=== PATIENT | male | born 1935 | race Caucasian/White ===

== ENCOUNTER 2022-05-14 02:54 | Inpatient (IN) ==
[2022-05-14] MEDS ORDERED: Iopamidol - 370 500 ML MLS IVP ONE (03:13)
[2022-05-14] MEDS ORDERED: Ipratropium/Albuterol Neb 3 ML IH ONE (03:17)
[2022-05-14] MEDS ORDERED: Albuterol 2.5 MG/3 ML NEBULIZER IH ONE (03:17)
[2022-05-14 03:19] LABS: ABG Base Excess -1 mEq/L (-2 to 3); ABG HCO3 28 mEq/L (21-27); ABG Oxygen Saturation 100 % (95-98); ABG PCO2 73 mmHg (35-45); ABG PH 7.19 pH Units (7.32-7.45); ABG PO2 296 mmHg (85-104); ABG TCO2 30 mEq/L (20-26)
[2022-05-14 03:45] LABS: Hematocrit 31.4 % (37.5-50.1); Hemoglobin 9.5 g/dL (12.9-16.9); Mean Corpuscular Hemoglobin 29.4 pg (28.0-33.3); Mean Corpuscular Volume 97.2 fL (83.0-100.0); Red Blood Count 3.23 M/mcL (4.19-5.50); White Blood Count 10.4 K/mcL (4.3-11.1)
[2022-05-14 03:46] LABS: Basophils % 0.2 %; Eosinophils # 0.2 K/mcL (0.0-0.6); Eosinophils % 2.2 %; Immature Granulocytes % 0.5 % (0-4); Lymphocytes # 1.2 K/mcL (0.6-4.6); Lymphocytes % 11.8 %; Mean Corpuscular HGB Conc 30.3 g/dL (31.6-35.5); Mean Platelet Volume 10.4 fL (9.4-12.4); Monocytes # 0.8 K/mcL (0.0-1.3); Monocytes % 7.7 %; Neutrophils # 8.1 K/mcL (1.6-8.9); Platelet Count 217 K/mcL (140-400); Red Cell Distribution Width 14.7 % (11.5-14.5); Segmented Neutrophils % 77.6 %
[2022-05-14 04:08] LABS: Alanine Aminotransferase 12 Units/L (7-52); Albumin/Globulin Ratio 1.4 (1.1-2.2); Alkaline Phosphatase 70 Units/L (34-104); Aspartate Amino Transferase 15 Units/L (13-39); BUN/Creatinine Ratio 20 (6-26); Bilirubin,Total 0.4 mg/dL (0.3-1.0); Blood Urea Nitrogen 46 mg/dL (8-23); Calcium 8.7 mg/dL (8.6-10.3); Carbon Dioxide 27 mEq/L (23-29); Chloride 107 mEq/L (98-107); Globulin 2.9 g/dL (2.4-3.5); Glucose 151 mg/dL (70-105); Osmolality,Calculated 309 (280-300); Sodium 142 mEq/L (136-145); Total Protein 6.9 g/dL (6.4-8.9); Troponin I < 0.03 ng/mL (< 0.04)
[2022-05-14 04:43] LABS: Adenovirus Not Detected (Not Detect); Bordetella Pertussis Not Detected (Not Detect); Coronavirus 229E Not Detected (Not Detect); Coronavirus HKU1 Not Detected (Not Detect); Coronavirus NL63 Not Detected (Not Detect); Coronavirus OC43 Not Detected (Not Detect); Human Metapneumovirus Not Detected (Not Detect); Human Rhinovirus/Enterovirus DETECTED (Not Detect); Influenza A Subtype 2009 H1 Not Detected (Not Detect); Influenza B Not Detected (Not Detect); Parainfluenza Virus 1 Not Detected (Not Detect); Parainfluenza Virus 2 Not Detected (Not Detect); Parainfluenza Virus 3 Not Detected (Not Detect); Parainfluenza Virus 4 Not Detected (Not Detect); Respiratory Syncytial Virus Not Detected (Not Detect)
[2022-05-14 04:44] LABS: Chlamydophila pneumoniae Not Detected (Not Detect); Mycoplasma pneumoniae Not Detected (Not Detect)
[2022-05-14 04:45] LABS: SARS-CoV-2 DETECTED (Not Detect)
[2022-05-14] MEDS ORDERED: Vancomycin 1,500 MG/265 ML IV.SOLN IVPB ONE (06:03)
[2022-05-14] MEDS ORDERED: Piperacillin/Tazobactam 3.375 GM in 0.9 % Sodium Chloride Mini Bag 100 ML IVPB ONE (06:03)
[2022-05-14] MEDS ORDERED: Naloxone 0.4 MG/ML INJ IVP PRN (06:26)
[2022-05-14] MEDS ORDERED: Ondansetron ODT 4 MG TAB.RAPDIS SL PRN (06:26)
[2022-05-14] MEDS ORDERED: Melatonin 3 MG TABLET PO PRN (06:26)
[2022-05-14] MEDS ORDERED: D5% in Water 1,000 ML IVC PRN (06:32)
[2022-05-14] MEDS ORDERED: Dextrose Gel 15 GM/37.5 ML TUBE PO PRN ×2 (06:32)
[2022-05-14] MEDS ORDERED: *HR* Dextrose 50 % in Water (Syg) 50 ML SYRINGE IVP PRN (06:32)
[2022-05-14 06:44] LABS: ABG Base Excess 0 mEq/L (-2 to 3); ABG HCO3 28 mEq/L (21-27); ABG Oxygen Saturation 92 % (95-98); ABG PCO2 59 mmHg (35-45); ABG PH 7.28 pH Units (7.32-7.45); ABG PO2 73 mmHg (85-104); ABG TCO2 29 mEq/L (20-26)
[2022-05-14 08:20] LABS: C-Reactive Protein 56 mg/L (Less than 10)
[2022-05-14] MEDS: Ipratropium 1 PUFF INHALER IH SCH ×3 (08:56→22:43)
[2022-05-14] MEDS ORDERED: Insulin LISPRO 300 UNITS/3 ML VIAL SUBQ SCH (12:00)
[2022-05-14 12:52] LABS: Bilirubin,Urine Negative (Negative); Blood,Urine Trace (Negative); Clarity,Urine Clear (Clear); Color,Urine Light-Yellow (Yellow); Glucose,Urine (UA) Normal (Normal); Ketones,Urine 10 mg/dL (Negative); Leukocyte Esterase,Urine Negative (Negative); Mucus,Urine Few per lpf (None-Few); Nitrite,Urine Negative (Negative); Protein,Urine 200 mg/dL (Neg-Trace); RBC,Urine 0-3 per hpf (0-3); Specific Gravity,Urine 1.022 (1.010-1.025); Squamous Epithelial Cell,Urine Few per hpf (None-Few); Urobilinogen,Urine Normal (Normal); WBC,Urine 0-3 per hpf (0-3)
[2022-05-14] MEDS: *HR* Heparin 5,000 UNIT/ML VIAL SQ SCH ×2 (15:00→22:22)
[2022-05-14] MEDS: Insulin LISPRO 300 UNITS/3 ML VIAL SUBQ SCH (17:11)
[2022-05-15] MEDS: Ipratropium 1 PUFF INHALER IH SCH ×4 (04:08→22:56)
[2022-05-15] MEDS: *HR* Heparin 5,000 UNIT/ML VIAL SQ SCH ×3 (06:35→21:46)
[2022-05-15] MEDS: Insulin LISPRO 300 UNITS/3 ML VIAL SUBQ SCH ×3 (08:35→17:23)
[2022-05-15] MEDS ORDERED: levoFLOXacin 750 MG TABLET PO SCH (09:00)
[2022-05-15 12:19] LABS: Basophils % 0.1 %; Eosinophils % 0.2 %; Hemoglobin 8.7 g/dL (12.9-16.9); Nucleated Red Blood Cells 0.2 /100 WBC (0)
[2022-05-15 12:21] LABS: Hematocrit 27.8 % (37.5-50.1); Immature Granulocytes % 0.6 % (0-4); Lymphocytes # 0.7 K/mcL (0.6-4.6); Lymphocytes % 5.6 %; Mean Corpuscular HGB Conc 31.3 g/dL (31.6-35.5); Mean Corpuscular Hemoglobin 28.8 pg (28.0-33.3); Mean Corpuscular Volume 92.1 fL (83.0-100.0); Mean Platelet Volume 10.6 fL (9.4-12.4); Monocytes # 0.4 K/mcL (0.0-1.3); Monocytes % 3.5 %; Neutrophils # 11.3 K/mcL (1.6-8.9); Platelet Count 209 K/mcL (140-400); Red Blood Count 3.02 M/mcL (4.19-5.50); White Blood Count 12.6 K/mcL (4.3-11.1)
[2022-05-15] MEDS ORDERED: Fluticasone Propionate Nasal 50 MCG/SPRAY BOTTLE NS PRN (17:39)
[2022-05-15 19:30] LABS: Albumin 3.5 g/dL (3.5-5.7); Albumin/Globulin Ratio 1.3 (1.1-2.2); Bilirubin,Total 0.3 mg/dL (0.3-1.0); Calcium 8.4 mg/dL (8.6-10.3); Globulin 2.6 g/dL (2.4-3.5); Magnesium 1.4 mg/dL (1.6-2.6); Phosphorous 2.7 mg/dL (2.7-4.5); Potassium 4.3 mEq/L (3.5-5.1); Total Protein 6.1 g/dL (6.4-8.9)
[2022-05-15] MEDS ORDERED: rOPINIRole 0.25 MG TABLET PO SCH (21:00)
[2022-05-15] MEDS: carvediloL 6.25 MG TABLET PO SCH (21:39)
[2022-05-16] MEDS: Ipratropium 1 PUFF INHALER IH SCH ×2 (04:46→09:54)
[2022-05-16] MEDS: *HR* Heparin 5,000 UNIT/ML VIAL SQ SCH (05:39)
[2022-05-16 07:01] VITALS: BP 175/104; PULSE 75; TEMP 98.3
[2022-05-16] MEDS: Insulin LISPRO 300 UNITS/3 ML VIAL SUBQ SCH ×2 (08:21→12:01)
[2022-05-16] MEDS: carvediloL 6.25 MG TABLET PO SCH (08:34)
[2022-05-16] MEDS ORDERED: Aspirin Enteric Coated 81 MG Tablet PO SCH (09:00)
[2022-05-16 10:11] VITALS: O2SAT 93
== END 2022-05-16 13:20 | disposition home or self-care (01) | DRG 177 ==
LOC: SUATTDRO → EMEROOARM 02:54 → SUATTDRO 15:38 → 2NENU 15:38
PROVIDERS: ADMIT Pharmacist; ATTEND Internal Medicine

== ENCOUNTER 2022-07-02 20:42 | Inpatient (IN) ==
[2022-07-02 22:59] LABS: Basophils % 0.2 %; Eosinophils # 0.1 K/mcL (0.0-0.6); Eosinophils % 0.8 %; Hematocrit 25.3 % (37.5-50.1); Immature Granulocytes % 0.6 % (0-4); Lymphocytes # 2.1 K/mcL (0.6-4.6); Lymphocytes % 15.9 %; Mean Corpuscular HGB Conc 31.6 g/dL (31.6-35.5); Mean Corpuscular Hemoglobin 30.1 pg (28.0-33.3); Mean Corpuscular Volume 95.1 fL (83.0-100.0); Mean Platelet Volume 10.1 fL (9.4-12.4); Monocytes # 1.4 K/mcL (0.0-1.3); Monocytes % 10.8 %; Neutrophils # 9.6 K/mcL (1.6-8.9); Platelet Count 396 K/mcL (140-400); Red Blood Count 2.66 M/mcL (4.19-5.50); Red Cell Distribution Width 14.6 % (11.5-14.5); Segmented Neutrophils % 71.7 %; White Blood Count 13.3 K/mcL (4.3-11.1)
[2022-07-03 00:09] LABS: Albumin 3.1 g/dL (3.5-5.7); Albumin/Globulin Ratio 0.9 (1.1-2.2); Bilirubin,Total 0.5 mg/dL (0.3-1.0); Calcium 8.5 mg/dL (8.6-10.3); Globulin 3.4 g/dL (2.4-3.5); Total Protein 6.5 g/dL (6.4-8.9); Troponin I 0.03 ng/mL (< 0.04)
[2022-07-03] MEDS ORDERED: Melatonin 3 MG TABLET PO PRN (00:51)
[2022-07-03] MEDS ORDERED: Acetaminophen 325 MG TABLET PO PRN (00:51)
[2022-07-03] MEDS ORDERED: Ondansetron 4 MG/2 ML VIAL IVP PRN (00:51)
[2022-07-03] MEDS ORDERED: Naloxone 0.4 MG/ML INJ IVP PRN (00:51)
[2022-07-03] MEDS ORDERED: D5% in Water 1,000 ML IVC PRN (00:54)
[2022-07-03] MEDS ORDERED: Dextrose Gel 15 GM/37.5 ML TUBE PO PRN ×2 (00:54)
[2022-07-03] MEDS ORDERED: *HR* Dextrose 50 % in Water (Syg) 50 ML SYRINGE IVP PRN (00:54)
[2022-07-03 01:11] LABS: Influenza A PCR Negative (Negative); Influenza B PCR Negative (Negative); Resp. Syncytial Virus PCR Negative (Negative)
[2022-07-03 01:14] LABS: SARS-CoV-2 by PCR (In House) Negative (Negative)
[2022-07-03] MEDS ORDERED: Albumin Human 5% 12.5 GM/250 ML IV.SOLN IVPB ONE (02:20)
[2022-07-03] MEDS ORDERED: Albumin 25% 12.5gm/50mL 12.5 GM/50 ML IV.SOLN IVPB ONE (02:39)
[2022-07-03 04:10] LABS: Bilirubin,Urine Negative (Negative); Blood,Urine Moderate (Negative); Clarity,Urine Clear (Clear); Color,Urine Light-Yellow (Yellow); Glucose,Urine (UA) Normal (Normal); Hyaline Casts,Urine Few per lpf (None Seen); Ketones,Urine Negative (Negative); Leukocyte Esterase,Urine Negative (Negative); Mucus,Urine Few per lpf (None-Few); Nitrite,Urine Negative (Negative); PH,Urine 5.5 pH Units (5.0-8.0); Protein,Urine 50 mg/dL (Neg-Trace); RBC,Urine 0-3 per hpf (0-3); Specific Gravity,Urine 1.012 (1.010-1.025); Squamous Epithelial Cell,Urine Few per hpf (None-Few); Urobilinogen,Urine Normal (Normal); WBC,Urine 0-3 per hpf (0-3)
[2022-07-03 04:52] LABS: Basophils % 0.2 %; Eosinophils # 0.1 K/mcL (0.0-0.6); Eosinophils % 0.7 %; Hematocrit 22.7 % (37.5-50.1); Immature Granulocytes % 0.7 % (0-4); Lymphocytes % 14.9 %; Mean Corpuscular HGB Conc 30.8 g/dL (31.6-35.5); Mean Corpuscular Hemoglobin 28.9 pg (28.0-33.3); Mean Corpuscular Volume 93.8 fL (83.0-100.0); Mean Platelet Volume 9.9 fL (9.4-12.4); Monocytes # 1.6 K/mcL (0.0-1.3); Neutrophils # 9.6 K/mcL (1.6-8.9); Platelet Count 363 K/mcL (140-400); Red Blood Count 2.42 M/mcL (4.19-5.50); Red Cell Distribution Width 14.6 % (11.5-14.5); Segmented Neutrophils % 71.5 %; White Blood Count 13.5 K/mcL (4.3-11.1)
[2022-07-03 04:59] LABS: INR 2.4; Prothrombin Time 26.1 Seconds (9.4-12.1)
[2022-07-03] MEDS ORDERED: Furosemide 20 MG/2 ML VIAL IVP ONE (05:00)
[2022-07-03 05:15] LABS: Calcium 8.4 mg/dL (8.6-10.3); Magnesium 1.2 mg/dL (1.6-2.6); Phosphorous 3.7 mg/dL (2.7-4.5); Potassium 3.8 mEq/L (3.5-5.1)
[2022-07-03 05:25] LABS: Thyroid Stimulating Hormone 2.507 mcIU/mL (0.340-5.600)
[2022-07-03 05:36] LABS: Folate 18.7 ng/mL (3.0-16.0)
[2022-07-03] MEDS ORDERED: Fluticasone Propionate Nasal 50 MCG/SPRAY BOTTLE NS PRN (13:07)
[2022-07-03] MEDS: rOPINIRole 0.25 MG TABLET PO SCH (22:28)
[2022-07-03] MEDS: Famotidine 20 MG TABLET PO SCH (22:28)
[2022-07-04 05:25] LABS: Basophils % 0.2 %; Eosinophils # 0.1 K/mcL (0.0-0.6); Eosinophils % 0.5 %; Hematocrit 23.3 % (37.5-50.1); Hemoglobin 7.3 g/dL (12.9-16.9); Immature Granulocytes % 0.9 % (0-4); Lymphocytes # 1.5 K/mcL (0.6-4.6); Lymphocytes % 11.2 %; Mean Corpuscular HGB Conc 31.3 g/dL (31.6-35.5); Mean Corpuscular Hemoglobin 29.4 pg (28.0-33.3); Mean Platelet Volume 10.1 fL (9.4-12.4); Monocytes # 1.5 K/mcL (0.0-1.3); Monocytes % 11.3 %; Platelet Count 381 K/mcL (140-400); Red Blood Count 2.48 M/mcL (4.19-5.50); Red Cell Distribution Width 14.5 % (11.5-14.5); Segmented Neutrophils % 75.9 %; White Blood Count 13.2 K/mcL (4.3-11.1)
[2022-07-04 06:31] LABS: Calcium 8.6 mg/dL (8.6-10.3); Potassium 4.1 mEq/L (3.5-5.1)
[2022-07-04] MEDS: Furosemide 20 MG TABLET PO SCH (10:05)
[2022-07-04 12:34] LABS: INR 1.5; Prothrombin Time 16.2 Seconds (9.4-12.1)
[2022-07-04] MEDS: Famotidine 20 MG TABLET PO SCH (23:21)
[2022-07-04] MEDS: rOPINIRole 0.25 MG TABLET PO SCH (23:21)
[2022-07-04] MEDS: *HR* Heparin 5,000 UNIT/ML VIAL SQ SCH (23:22)
[2022-07-05] MEDS: *HR* Heparin 5,000 UNIT/ML VIAL SQ SCH ×2 (05:53→13:46)
[2022-07-05] MEDS ORDERED: Colchicine 0.6 MG TABLET PO ONE ×2 (08:34)
[2022-07-05 09:01] LABS: Basophils % 0.1 %; Eosinophils % 0.2 %; Lymphocytes % 7.7 %; Mean Corpuscular HGB Conc 32.1 g/dL (31.6-35.5); Red Cell Distribution Width 14.6 % (11.5-14.5)
[2022-07-05 09:03] LABS: Hematocrit 23.7 % (37.5-50.1); Hemoglobin 7.6 g/dL (12.9-16.9); Immature Granulocytes % 0.8 % (0-4); Immature Platelets 4.1 % (1.1-6.1); Lymphocytes # 1.2 K/mcL (0.6-4.6); Mean Corpuscular Hemoglobin 30.5 pg (28.0-33.3); Mean Corpuscular Volume 95.2 fL (83.0-100.0); Mean Platelet Volume 10.2 fL (9.4-12.4); Monocytes # 1.5 K/mcL (0.0-1.3); Monocytes % 9.7 %; Neutrophils # 12.6 K/mcL (1.6-8.9); Platelet Count 350 K/mcL (140-400); Red Blood Count 2.49 M/mcL (4.19-5.50); Segmented Neutrophils % 81.5 %; White Blood Count 15.4 K/mcL (4.3-11.1)
[2022-07-05 09:21] LABS: BUN/Creatinine Ratio 15 (6-26); Blood Urea Nitrogen 44 mg/dL (8-23); Calcium 8.6 mg/dL (8.6-10.3); Carbon Dioxide 26 mEq/L (23-29); Chloride 98 mEq/L (98-107); Glucose 135 mg/dL (70-105); Osmolality,Calculated 291 (280-300); Potassium 4.8 mEq/L (3.5-5.1); Sodium 134 mEq/L (136-145)
[2022-07-05] MEDS: Furosemide 20 MG TABLET PO SCH (10:16)
[2022-07-05 16:01] LABS: Source,Synovial Fluid left knee
[2022-07-05] MEDS: Insulin LISPRO 300 UNITS/3 ML VIAL SUBQ SCH ×2 (17:34→22:15)
[2022-07-05 17:52] LABS: Appearance,Synovial Fluid Cloudy (Clear-Hazy); Color,Synovial Fluid Straw (Straw)
[2022-07-05] MEDS: rOPINIRole 0.25 MG TABLET PO SCH (22:17)
[2022-07-05] MEDS: Famotidine 20 MG TABLET PO SCH (22:17)
[2022-07-05 22:50] LABS: C-Reactive Protein > 300 mg/L (Less than 10)
[2022-07-06 01:17] LABS: Basophils % 0.1 %; Eosinophils # 0.1 K/mcL (0.0-0.6); Eosinophils % 0.4 %; Hematocrit 23.8 % (37.5-50.1); Hemoglobin 7.5 g/dL (12.9-16.9); Immature Granulocytes % 0.8 % (0-4); Lymphocytes # 1.7 K/mcL (0.6-4.6); Lymphocytes % 11.7 %; Mean Corpuscular HGB Conc 31.5 g/dL (31.6-35.5); Mean Corpuscular Hemoglobin 28.6 pg (28.0-33.3); Mean Corpuscular Volume 90.8 fL (83.0-100.0); Mean Platelet Volume 9.9 fL (9.4-12.4); Monocytes # 1.4 K/mcL (0.0-1.3); Platelet Count 391 K/mcL (140-400); Red Blood Count 2.62 M/mcL (4.19-5.50); Red Cell Distribution Width 14.6 % (11.5-14.5); White Blood Count 14.2 K/mcL (4.3-11.1)
[2022-07-06 01:45] LABS: BUN/Creatinine Ratio 17 (6-26); Blood Urea Nitrogen 50 mg/dL (8-23); C-Reactive Protein > 300 mg/L (Less than 10); Calcium 8.9 mg/dL (8.6-10.3); Carbon Dioxide 27 mEq/L (23-29); Chloride 96 mEq/L (98-107); Creatine Kinase 46 Units/L (30-223); Glucose 148 mg/dL (70-105); Osmolality,Calculated 292 (280-300); Potassium 4.1 mEq/L (3.5-5.1); Sodium 133 mEq/L (136-145)
[2022-07-06] MEDS ORDERED: Colchicine 0.6 MG TABLET PO ONE (08:10)
[2022-07-06] MEDS: Insulin LISPRO 300 UNITS/3 ML VIAL SUBQ SCH ×4 (08:29→22:39)
[2022-07-06] MEDS: Furosemide 20 MG TABLET PO SCH (10:44)
[2022-07-06] MEDS: *HR* Glimepiride 2 MG TABLET PO SCH (10:44)
[2022-07-06] MEDS: *HR* Rivaroxaban 15 MG TABLET PO SCH (10:45)
[2022-07-06] MEDS: Cefepime HCl 1,000 MG in 0.9 % Sodium Chloride 10 ML IVP SCH (17:45)
[2022-07-06] MEDS ORDERED: Cefepime HCl 2,000 MG in 0.9 % Sodium Chloride 10 ML IVP SCH (18:00)
[2022-07-06] MEDS: Cyanocobalamin (B-12) 1,000 MCG/ML VIAL SQ SCH (22:36)
[2022-07-06] MEDS: rOPINIRole 0.25 MG TABLET PO SCH (22:36)
[2022-07-06] MEDS: Famotidine 20 MG TABLET PO SCH (22:36)
[2022-07-07] MEDS: Thiamine (B-1) 100 MG in 0.9 % Sodium Chloride 50 ML IVPB SCH ×3 (00:15→21:58)
[2022-07-07] MEDS: Cefepime HCl 1,000 MG in 0.9 % Sodium Chloride 10 ML IVP SCH ×3 (02:13→17:03)
[2022-07-07] MEDS: Cyanocobalamin (B-12) 1,000 MCG/ML VIAL SQ SCH (08:12)
[2022-07-07] MEDS: Furosemide 20 MG TABLET PO SCH (08:12)
[2022-07-07] MEDS: Insulin LISPRO 300 UNITS/3 ML VIAL SUBQ SCH ×4 (08:13→21:59)
[2022-07-07] MEDS: *HR* Rivaroxaban 15 MG TABLET PO SCH (08:13)
[2022-07-07] MEDS: *HR* Glimepiride 2 MG TABLET PO SCH (08:13)
[2022-07-07 15:38] LABS: Basophils % 0.2 %; Eosinophils # 0.1 K/mcL (0.0-0.6); Eosinophils % 0.9 %; Hematocrit 24.3 % (37.5-50.1); Hemoglobin 7.8 g/dL (12.9-16.9); Immature Granulocytes % 0.6 % (0-4); Lymphocytes # 1.7 K/mcL (0.6-4.6); Lymphocytes % 13.4 %; Mean Corpuscular HGB Conc 32.1 g/dL (31.6-35.5); Mean Corpuscular Volume 90.3 fL (83.0-100.0); Mean Platelet Volume 9.5 fL (9.4-12.4); Monocytes # 1.1 K/mcL (0.0-1.3); Monocytes % 8.2 %; Neutrophils # 9.8 K/mcL (1.6-8.9); Platelet Count 458 K/mcL (140-400); Red Blood Count 2.69 M/mcL (4.19-5.50); Red Cell Distribution Width 14.8 % (11.5-14.5); Segmented Neutrophils % 76.7 %; White Blood Count 12.8 K/mcL (4.3-11.1)
[2022-07-07 15:58] LABS: Potassium 3.7 mEq/L (3.5-5.1)
[2022-07-07] MEDS ORDERED: Vancomycin 1,250 MG/262.5 ML IV.SOLN IVPB ONE (18:00)
[2022-07-07] MEDS: rOPINIRole 0.25 MG TABLET PO SCH (21:57)
[2022-07-07] MEDS: Famotidine 20 MG TABLET PO SCH (21:57)
[2022-07-08] MEDS: Cefepime HCl 1,000 MG in 0.9 % Sodium Chloride 10 ML IVP SCH (04:37)
[2022-07-08] MEDS: Insulin LISPRO 300 UNITS/3 ML VIAL SUBQ SCH ×4 (08:34→22:49)
[2022-07-08 09:30] LABS: Basophils % 0.3 %; Eosinophils # 0.2 K/mcL (0.0-0.6); Eosinophils % 1.9 %; Hematocrit 25.8 % (37.5-50.1); Hemoglobin 8.4 g/dL (12.9-16.9); Immature Granulocytes % 0.9 % (0-4); Lymphocytes # 1.4 K/mcL (0.6-4.6); Lymphocytes % 11.9 %; Mean Corpuscular HGB Conc 32.6 g/dL (31.6-35.5); Mean Corpuscular Hemoglobin 30.4 pg (28.0-33.3); Mean Corpuscular Volume 93.5 fL (83.0-100.0); Mean Platelet Volume 9.9 fL (9.4-12.4); Monocytes % 8.5 %; Neutrophils # 8.7 K/mcL (1.6-8.9); Platelet Count 487 K/mcL (140-400); Red Blood Count 2.76 M/mcL (4.19-5.50); Red Cell Distribution Width 15.5 % (11.5-14.5); Segmented Neutrophils % 76.5 %; White Blood Count 11.4 K/mcL (4.3-11.1)
[2022-07-08 09:49] LABS: Calcium 9.3 mg/dL (8.6-10.3); Potassium 4.1 mEq/L (3.5-5.1)
[2022-07-08] MEDS: *HR* Rivaroxaban 15 MG TABLET PO SCH (09:56)
[2022-07-08] MEDS: Furosemide 20 MG TABLET PO SCH (09:56)
[2022-07-08] MEDS: *HR* Glimepiride 2 MG TABLET PO SCH (09:57)
[2022-07-08] MEDS: Cyanocobalamin (B-12) 1,000 MCG/ML VIAL SQ SCH (09:57)
[2022-07-08] MEDS: Thiamine (B-1) 100 MG in 0.9 % Sodium Chloride 50 ML IVPB SCH ×2 (09:57→22:44)
[2022-07-08 11:00] LABS: Source,Synovial Fluid Left knee
[2022-07-08 13:49] LABS: Appearance,Synovial Fluid Cloudy (Clear-Hazy); Color,Synovial Fluid Amber (Straw)
[2022-07-08] MEDS: Cefepime HCl 2,000 MG in 0.9 % Sodium Chloride 10 ML IVP SCH (17:05)
[2022-07-08] MEDS ORDERED: Vancomycin 1,250 MG/262.5 ML IV.SOLN IVPB ONE (21:00)
[2022-07-08] MEDS: rOPINIRole 0.25 MG TABLET PO SCH (22:49)
[2022-07-08] MEDS: Famotidine 20 MG TABLET PO SCH (22:49)
[2022-07-08] MEDS: Morphine Sulfate 2 MG/ML SYRINGE IVP PRN (23:35)
[2022-07-09] MEDS: Cefepime HCl 2,000 MG in 0.9 % Sodium Chloride 10 ML IVP SCH (04:57)
[2022-07-09] MEDS: Furosemide 20 MG TABLET PO SCH (08:32)
[2022-07-09] MEDS: Insulin LISPRO 300 UNITS/3 ML VIAL SUBQ SCH ×4 (08:32→20:20)
[2022-07-09] MEDS: *HR* Glimepiride 2 MG TABLET PO SCH (08:33)
[2022-07-09] MEDS: *HR* Rivaroxaban 15 MG TABLET PO SCH (08:33)
[2022-07-09] MEDS: Thiamine (B-1) 100 MG in 0.9 % Sodium Chloride 50 ML IVPB SCH (11:58)
[2022-07-09] MEDS: Thiamine (B-1) 100 MG TABLET PO SCH (15:22)
[2022-07-09] MEDS: rOPINIRole 0.25 MG TABLET PO SCH (19:26)
[2022-07-09] MEDS: Famotidine 20 MG TABLET PO SCH (19:26)
[2022-07-09 20:08] LABS: ABG Base Excess 4 mEq/L (-2 to 3); ABG HCO3 29 mEq/L (21-27); ABG Oxygen Saturation 98 % (95-98); ABG PCO2 46 mmHg (35-45); ABG PH 7.41 pH Units (7.32-7.45); ABG PO2 101 mmHg (85-104); ABG TCO2 30 mEq/L (20-26)
[2022-07-10] MEDS: Insulin LISPRO 300 UNITS/3 ML VIAL SUBQ SCH ×3 (07:30→17:11)
[2022-07-10] MEDS ORDERED: Cefepime HCl 2,000 MG in 0.9 % Sodium Chloride 10 ML IVP SCH (09:00)
[2022-07-10] MEDS: Furosemide 20 MG TABLET PO SCH (09:42)
[2022-07-10] MEDS: Thiamine (B-1) 100 MG TABLET PO SCH (09:42)
[2022-07-10] MEDS: *HR* Rivaroxaban 15 MG TABLET PO SCH (09:43)
[2022-07-10 10:26] LABS: Bilirubin,Urine Negative (Negative); Blood,Urine Moderate (Negative); Clarity,Urine Clear (Clear); Color,Urine Light-Yellow (Yellow); Glucose,Urine (UA) Normal (Normal); Ketones,Urine 10 mg/dL (Negative); Leukocyte Esterase,Urine Negative (Negative); Mucus,Urine Few per lpf (None-Few); Nitrite,Urine Negative (Negative); Protein,Urine 70 mg/dL (Neg-Trace); RBC,Urine 0-3 per hpf (0-3); Specific Gravity,Urine 1.017 (1.010-1.025); Squamous Epithelial Cell,Urine Few per hpf (None-Few); Urobilinogen,Urine Normal (Normal); WBC,Urine 0-3 per hpf (0-3)
[2022-07-10 11:01] LABS: Calcium 9.4 mg/dL (8.6-10.3); Potassium 3.8 mEq/L (3.5-5.1)
[2022-07-10] MEDS: D5% in 0.9% NACL 1,000 ML IVC SCH (11:14)
[2022-07-10] MEDS: Thiamine (B-1) 100 MG in 0.9 % Sodium Chloride 50 ML IVPB SCH ×2 (13:19→21:10)
[2022-07-10] MEDS: Morphine Sulfate 2 MG/ML SYRINGE IVP PRN (19:52)
[2022-07-10] MEDS: Famotidine 20 MG TABLET PO SCH (21:10)
[2022-07-10] MEDS: rOPINIRole 0.25 MG TABLET PO SCH (21:10)
[2022-07-11] MEDS: Morphine Sulfate 2 MG/ML SYRINGE IVP PRN (00:09)
[2022-07-11 01:15] LABS: Calcium 9.3 mg/dL (8.6-10.3); Potassium 3.5 mEq/L (3.5-5.1)
[2022-07-11] MEDS: Insulin LISPRO 300 UNITS/3 ML VIAL SUBQ SCH ×5 (01:30→23:28)
[2022-07-11] MEDS: D5% in 0.9% NACL 1,000 ML IVC SCH ×2 (02:11→16:01)
[2022-07-11] MEDS ORDERED: *HR* HYDROmorphone (PF) 1 MG/ML SYRINGE IVP PRN (08:31)
[2022-07-11] MEDS ORDERED: Vancomycin 500 MG in 0.9 % Sodium Chloride Mini Bag 100 ML IVPB ONE (09:00)
[2022-07-11] MEDS: *HR* Rivaroxaban 15 MG TABLET PO SCH (09:56)
[2022-07-11] MEDS: Furosemide 20 MG TABLET PO SCH (09:56)
[2022-07-11 10:59] LABS: Adenovirus Not Detected (Not Detect); Bordetella Pertussis Not Detected (Not Detect); Chlamydophila pneumoniae Not Detected (Not Detect); Coronavirus 229E Not Detected (Not Detect); Coronavirus HKU1 Not Detected (Not Detect); Coronavirus NL63 Not Detected (Not Detect); Coronavirus OC43 Not Detected (Not Detect); Human Metapneumovirus Not Detected (Not Detect); Human Rhinovirus/Enterovirus Not Detected (Not Detect); Influenza A Subtype 2009 H1 Not Detected (Not Detect); Influenza B Not Detected (Not Detect); Mycoplasma pneumoniae Not Detected (Not Detect); Parainfluenza Virus 1 Not Detected (Not Detect); Parainfluenza Virus 2 Not Detected (Not Detect); Parainfluenza Virus 3 Not Detected (Not Detect); Parainfluenza Virus 4 Not Detected (Not Detect); Respiratory Syncytial Virus Not Detected (Not Detect); SARS-CoV-2 Not Detected (Not Detect)
[2022-07-11] MEDS: Thiamine (B-1) 100 MG in 0.9 % Sodium Chloride 50 ML IVPB SCH ×2 (11:26→22:07)
[2022-07-11] MEDS ORDERED: Dulaglutide [Trulicity] 0.75 MG/0.5 ML Pen.Injctr SUBQ SCH (13:47)
[2022-07-11] MEDS ORDERED: *HR* HYDROmorphone (PF) 1 MG/ML SYRINGE IVP ONE (14:45)
[2022-07-11] MEDS: *HR* HYDROmorphone (PF) 1 MG/ML SYRINGE IVP PRN (18:51)
[2022-07-11] MEDS: Famotidine 20 MG TABLET PO SCH (21:57)
[2022-07-11] MEDS: rOPINIRole 0.25 MG TABLET PO SCH (21:57)
[2022-07-12] MEDS: *HR* HYDROmorphone (PF) 1 MG/ML SYRINGE IVP PRN ×2 (03:56→09:31)
[2022-07-12] MEDS: Insulin LISPRO 300 UNITS/3 ML VIAL SUBQ SCH ×3 (05:35→19:16)
[2022-07-12] MEDS: D5% in 0.9% NACL 1,000 ML IVC SCH (05:36)
[2022-07-12 06:24] LABS: Basophils % 0.3 %; Eosinophils # 0.3 K/mcL (0.0-0.6); Eosinophils % 2.2 %; Hematocrit 25.5 % (37.5-50.1); Hemoglobin 7.7 g/dL (12.9-16.9); Immature Granulocytes % 0.8 % (0-4); Lymphocytes # 1.7 K/mcL (0.6-4.6); Mean Corpuscular HGB Conc 30.2 g/dL (31.6-35.5); Mean Corpuscular Hemoglobin 28.2 pg (28.0-33.3); Mean Corpuscular Volume 93.4 fL (83.0-100.0); Mean Platelet Volume 9.7 fL (9.4-12.4); Monocytes # 1.4 K/mcL (0.0-1.3); Monocytes % 10.9 %; Neutrophils # 9.4 K/mcL (1.6-8.9); Platelet Count 502 K/mcL (140-400); Red Blood Count 2.73 M/mcL (4.19-5.50); Red Cell Distribution Width 15.7 % (11.5-14.5); Segmented Neutrophils % 72.8 %; White Blood Count 12.8 K/mcL (4.3-11.1)
[2022-07-12 06:43] LABS: Calcium 9.1 mg/dL (8.6-10.3); Potassium 3.7 mEq/L (3.5-5.1)
[2022-07-12] MEDS: Thiamine (B-1) 100 MG in 0.9 % Sodium Chloride 50 ML IVPB SCH (10:34)
[2022-07-12] MEDS: *HR* Rivaroxaban 15 MG TABLET PO SCH (10:36)
[2022-07-12] MEDS: Furosemide 20 MG TABLET PO SCH (10:36)
[2022-07-12 15:10] VITALS: BP 169/63; PULSE 83; TEMP 99.2; O2SAT 95
== END 2022-07-12 20:10 | disposition short-term general hospital (02) | DRG 553 ==
LOC: 3ANU 20:42 → EMEROOARM 20:42 → SUATTDRO 07-03 00:39 → 3ANU 07-03 02:03
PROVIDERS: ADMIT Internal Medicine; ATTEND Internal Medicine